=== PATIENT | female | born 1985 | race Hispanic/Latino ===

== ENCOUNTER 2016-12-02 12:54 | Emergency (ER) | payer OTHER ==
[~2016-12-02] VITALS: Ht 154.9 cm; Wt 75.0 kg
[~2016-12-02 12:54] MED LIST: HYDR-4003 PO; PENI500T PO
[2016-12-02 12:55] VITALS: BP 125/68; PULSE 75; RESP 20; O2SAT 95
--- NOTE | 2016-12-02 13:20 | ED.REPORT ---
HPI-Dental/Mouth Prob Date of Service Dec 02, 2016 ED Provider: David Mckeon MD Patient is a 31 year old female who presents to the ED complaining of a toothache for the past week. The patient reports that the pain is in her top back left tooth pain and it has gotten progressively worse. She recently came back from [place] and hasn't been able to see a dentist. Patient also complains of a mass on her head that has been there for a year. Nursing Notes Stated Complaint: DENTAL PAIN Chief Complaint: Dental Nursing Notes Reviewed: Yes Allergies: Coded Allergies: Sulfa (Sulfonamide Antibiotics) (Verified Allergy, Mild, 12/02/16) Scheduled Penicillin V Potassium (Penicillin V Potassium) 500 Mg Tablet 500 MG PO QID Penicillin V Potassium (Penicillin V Potassium) 500 Mg Tablet 500 MG PO QID Scheduled PRN Hydrocodone-Acetaminophen 5-325 mg (Hydrocodone-Acetaminophen 5-325 mg) 1 Each Tablet 1 TABLET PO Q4H PRN PRN For Pain General Time Seen by MD: 13:19 Chief Complaint Tooth pain Hx Obtained From: Patient Arrived By: Walk-in Onset Occurred: 1 week ago Symptom Duration: Since onset Location: : Tooth upper L molar Quality: Painful Severity: Current: Moderate Recent Healthcare: No recent doctor visit, No recent hospitalization Past Medical History Past Medical History None reported Past Surgical History None reported Smoking History Unknown if Ever Smoker Social History Other Social History: Local resident Ambulatory Status Independent Review of Systems Ears / Nose / Throat: Reports: Mouth pain, Toothache Respiratory: Denies: Non-productive cough, Shortness of breath Complete sys rev & neg: except as marked. Physical Exam Initial Vital Signs Vital Signs (First) Date Time Temp Pulse Resp B/P Pulse Ox O2 Delivery O2 Flow Rate FiO2 12/02/16 12:55 36.6 75 20 125/68 95 Room Air Initial VS: Reviewed ENT: Atraumatic, Airway patent, Mucous membranes moist tooth 14 and 15 tender to tap no evidence of abscess gingival erythema on the lingual aspect of tooth 15 Neck: Atraumatic, Supple, Full range of motion, No adenopathy General/Constitutional: Awake, Alert Head / Eyes: Atraumatic, Normocephalic, PERRL, EOMI subaceous cyst 1cm x 1cm on the top of head Respiratory / Chest: Atraumatic, Breath sounds NL, Breath sounds = bilat, No respiratory distress Cardiovascular: Heart rate NL, Regular rhythm, Heart sounds NL Neurologic: Oriented X3, Speech NL, No motor deficits, No sensory deficits Skin: Atraumatic, Color NL, No rash, Warm, Dry Psychiatric: Affect NL, Mood NL Re-Eval/Medical Decision Re-Evaluation/Progress : Time of Eval: 13:33 Re-Evaluation/Progress Note: Discussed plan for follow up and discharge during initial interview. The patient understands and agrees to the plan. All questions were addressed Counseled Regarding: Diagnosis, Lab results, Need for follow-up, When/why to return to ED Discharge & Departure Primary Impression: Toothache Disposition: Home Discharge Condition All VS Reviewed: Yes Condition: Stable Patient Instructions: Toothache (ED) Additional Instructions: Thank you for trusting us with your care today. You can take 800mg ibuprofen every 8 hours and Tylenol 1000 mg every 6 hours for pain. You should also take the antibiotic, Penicillin as prescribed. Please follow up with a dentist as soon as you can. Return to the emergency department if you develop any new or worsening symptoms including fever, facial swelling, difficulty swallowing or other concerning symptoms. Referrals: [facility] (PCP) Carlosibe Attestation Portions of this note were transcribed by Lashell West. I, Dr. Mckeon personally performed the history, physical exam and medical decision-making; I reviewed and confirmed the accuracy of the information in the transcribed note. Signed by:Bree Asencio, 12/02/16 and 1330 copies to: [facility] David Mckeon MD Dec 02, 2016 13:20 Lizzette West Dec 02, 2016 13:25
[2016-12-02] MEDS ORDERED: PENI500T PO (13:33)
== END 2016-12-02 13:44 | disposition home or self-care (01) ==
LOC: SED 12:54
DX: K08.89 Other specified disorders of teeth and supporting structures (principal); R22.0 Localized swelling, mass and lump, head; Z88.2 Allergy status to sulfonamides